=== PATIENT | male | born 1965 | race Caucasian/White ===

== ENCOUNTER 2024-03-12 08:51 | Outpatient (AMB) | payer OTHER, SELFPAY ==
--- NOTE | 2024-03-12 08:52 | A.OFFVIS_ITS ---
Vital Signs 03/12/24 08:53 Height 5 ft 11 in Weight 198 lb 6.656 oz BMI 27.7 BP 122/74 Blood Pressure Location Rt brachial Position Sitting Pulse 83 Pulse Oximetry (%) 97 Intake Visit Reasons: Joint Pain Intake Note: New patient presents today for consult. Family history of Rheumatoid arthritis. 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 The condition started approximately 8-10 years ago. Patient stated that he was diagnosed with Lyme these 2-3 times after a tick bite and symptoms resolved with doxycycline courses. Patient states that he has chronic pain in different joints including shoulders, elbows, intermittent pain in his hands, knees. Most recently has been having pain in his left triceps. He has difficultly raising his left arm above his head. He was evaluated by Orthopedics about a month ago and had x-rays done in an he was told it was normal. He was advised to do physical therapy. He was kayaking yesterday and his right shoulder is significantly painful. Two years ago he had abrupt onset of left call pain and swelling with no precipitating cause, this was treated with a boot. He gets pain in the middle of the night in his elbows. 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 He denies any skin rashes. Denies any weight loss. States that his twin brother was recently diagnosed with a form of inflammatory arthritis and he had right shoulder surgery, afterwards he was having pain and inflammation in his left shoulder and at that time he was referred to a public affairs specialist and started on prednisone followed by methotrexate with improvement. States that his mother had really bad rheumatoid arthritis. They denies any history suggestive of uveitis. He had a colonoscopy 2 years ago which was unremarkable. Has an esophageal stricture related to GERD that was treated with Prilosec. [facility] Medical History (Updated 03/12/24 @ 09:38 by Susu Torres MD) GERD (gastroesophageal reflux disease) Esophageal dysphagia Asthma Displacement of lumbar intervertebral disc without myelopathy Surgical History Status post right foot surgery Family History (Updated 03/12/24 @ 09:41 by Susu Torres MD) Mother Rheumatoid arthritis Heart disease Father Dementia Coronary arteriosclerosis COPD (chronic obstructive pulmonary disease) Malignant tumor of prostate Brother Seronegative arthritis Social History Alcohol intake: current Alcohol intake frequency: a few times a week Alcohol type: beer Patient Tobacco Use Status: Never used Tobacco Substance Use Type: Marijuana 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 Review of [employer] Const Reports fatigue, Denies fever(s), Reports weight gain and Denies weight loss Reports difficulty urinating Musc Reports arthralgias, Denies joint swelling and Reports stiffness Endo Reports fatigue Physical Exam Vital Signs: Last Vital Signs Pulse 83 03/12/24 08:53 BP 122/74 03/12/24 08:53 Pulse Ox 97 03/12/24 08:53 BMI result Body Mass Index 27.7 Const General: cooperative, healthy appearing and comfortable Nutritional Appearance: overweight Orientation/consciousness: patient oriented x3 Limitations: no limitations HEENT Head: Yes normocephalic and Yes atraumatic Mouth: moist mucous membranes Resp Effort & Inspection: normal respiratory effort and able to speak in complete sentences Auscultation: clear to auscultation bilaterally Cardio Rate: regular rate Skin General skin exam: no rashes or lesions noted Neuro General: patient oriented x3 Extrem Other: No obviously swollen joints Tenderness at the insertion site of left triceps Bilateral elbow pain with full extension Negative rotator cuff provocative maneuvers bilaterally Negative Speed's test bilaterally Negative Fabere test bilaterally No ankle swelling or tenderness bilaterally Normal nailfold capillaroscopy Results Reviewed Results Reviewed: Bilateral knee x-rays 2020? Impression no acute bone abnormality.? No significant degenerative change.? No significant change from 28/09 Labs 02/2023? LDL 112 Cholesterol 193? Triglycerides 186? Direct HDL 47 CMP unremarkable labs 2020 Immunoglobulin A 264 normal? TGA antibody IgA negative CRP undetectable ESR 2.0 CBC unremarkable DEE screen IFA negative RF negative CCP negative Assessment & Plan Assessment & Plan (1) Polyarthralgia: Code(s): M25.50 - Pain in unspecified joint Category: Medical Plan: This is a 58-year-old male who presents for evaluation of 8-10 year history of multiple joint pain. Joint pain is usually at the enthesis. Brother was recently diagnosed with a form of inflammatory arthritis that is treated with methotrexate. Mother had rheumatoid arthritis. His clinical picture is suspicious for a seronegative spondyloarthropathy. Will order comprehensive serology to screen for underlying autoimmune rheumatic disease. Patient will try to send me the report of recent x-rays done at Orthopedics. Start short prednisone taper for left triceps tendon pain Follow-up in 4-6 weeks Plan I spent 47 minutes reviewing patient's chart, evaluating patient, ordering diagnostic workup, counseling patient and documenting in the chart Orders: Orders C Reactive Protein Today M25.50 - Pain in unspecified joint Erythrocyte Sedimentation Rate Today M25.50 - Pain in unspecified joint Immunofixation Pnl, Serum Today M25.50 - Pain in unspecified joint Protein Electrophoresis, Serum Today M25.50 - Pain in unspecified joint Hepatitis A,B,C Profile Today Z11.59 - Encounter for screening for other viral diseases Angiotensin Converting Enzyme Today D86.9 - Sarcoidosis, unspecified Complete Blood Count Auto Diff Today M25.50 - Pain in unspecified joint Comprehensive Met. Panel Today M25.50 - Pain in unspecified joint T Spot TB Today Z11.7 - Encounter for testing for latent tuberculosis infection Rheumatoid Factor Today M25.50 - Pain in unspecified joint Cyclic Citrullinated Peptide Today M25.50 - Pain in unspecified joint HLA B27 Today M45.9 - Ankylosing spondylitis of unspecified sites in spine Medications: New prednisone Take 2 tabs daily for 1 week then 1 tab daily for 1 week then stop 21 tabs 0RF Coding Level of Care Code New Pt Level 4 (29358) Diagnoses Polyarthralgia M25.50
[2024-03-12 08:53] VITALS: BP 122/74; PULSE 83; O2SAT 97; BMI 27.7
== END 2024-03-12 09:32 | disposition home or self-care (01) ==
PROVIDERS: PCP Family Medicine; Visit Provider Student in an Organized Health Care Education/Training Program
DX: M25.50 Pain in unspecified joint (principal)
CPT/HCPCS: 99204

== ENCOUNTER → 2024-03-12 08:51 | Outpatient (BNVA) | payer OTHER, SELFPAY | PROVIDERS: PCP Family Medicine; Visit Provider Student in an Organized Health Care Education/Training Program ==

== ENCOUNTER 2024-03-12 09:36 | Outpatient (REF) | payer OTHER, SELFPAY ==
[2024-03-12 11:01] LABS: MANUAL DIFF FLAG NO
[2024-03-12 11:23] LABS: Rheumatoid Factor < 13.0 IU/mL (<15.0)
[2024-03-12 11:28] LABS: Alanine Aminotransferase 21 U/L (0-40); Albumin Level 4.2 g/dL (3.5-5.0); Alkaline Phosphatase 73 U/L (39-117); Anion Gap 13 (12-20); Aspartate Amino Transferase 16 U/L (5-37); Bilirubin Total 0.4 mg/dL (0.0-1.0); Blood Urea Nitrogen 18 mg/dL (9-16); C Reactive Protein 0.15 mg/dL (< or = 0.50); Calcium 9.5 mg/dL (8.4-10.2); Carbon Dioxide 26 mmol/L (22-29); Chloride 108 mmol/L (96-108); Estimated Glomerular Filt Rate > 60; Glucose Random 91 mg/dL (60-115); Potassium 4.1 mmol/L (3.3-5.1); Sodium 143 mmol/L (135-145); Total Protein 6.6 g/dL (6.5-8.0)
[2024-03-12 11:33] LABS: Basophils Absolute Auto 0.1 X10*3/uL (0.0-0.2); Basophils Percent Auto 1.1 % (0-2); Eosinophils Absolute Auto 0.3 X10*3/uL (0.0-0.4); Eosinophils Percent Auto 6.3 % (0-4); Hematocrit 44.2 % (42.0-52.0); Hemoglobin 15.4 g/dl (14.0-18.0); Imm Gran Abs Auto 0.03 X10*3/uL (0.00-0.03); Imm Gran Pct Auto 0.7 % (0.0-0.4); Lymphocytes Absolute Auto 1.2 X10*3/uL (1.2-4.9); Lymphocytes Percent Auto 26.1 % (20-40); Mean Corpuscular HGB Conc 34.8 g/dl (31.0-36.0); Mean Corpuscular Hemoglobin 31.4 pg (27.0-33.0); Mean Platelet Volume 10.1 fL (9.4-12.4); Monocytes Absolute Auto 0.4 X10*3/uL (0.1-1.2); Monocytes Percent Auto 9.1 % (2-11); Neutrophils Absolute Auto 2.6 x10*3/uL (2.0-8.3); Neutrophils Percent Auto 56.7 % (45-73); Platelet Count 203 X10*3/uL (160-400); Red Blood Count 4.91 X10*6/uL (4.60-5.80); Red Cell Distribution Width 12.9 % (11.0-16.0); White Blood Count 4.6 X10*3/uL (4.8-10.8)
[2024-03-12 11:42] LABS: HBS Num1 0.85 mIU/mL (0-7.99); HBc Num1 0.12 S/CO (0.00-0.79); HBsAGNum1 0.33 S/CO (0.00-0.99); Hepatitis A Antibody IgM 0.22 Index (0-0.79); Hepatitis B Core Antibody Nonreactive (Nonreactive); Hepatitis B Surface Antigen Negative (Negative); ~HepC Num1 0.18 S/CO (0.00-0.79); ~Hepatitis A Antibody IgM Nonreactive (Nonreactive); ~Hepatitis B Surface Antibody NONREACTIVE (Nonreactive); ~Hepatitis C Antibody Nonreactive (Nonreactive)
[2024-03-12 11:58] LABS: Erythrocyte Sedimentation Rate 2 MM/HR (0-15)
[2024-03-14 20:48] LABS: Cyclic Citrullinated Peptide <16 UNITS
[2024-03-15 14:49] LABS: TS Negative Control Passed; TS Panel A 4; TS Panel B 0; TS Positive Control Passed; TSpotTB Negative (Negative)
[2024-03-16 13:34] LABS: HLA B27 Negative (Negative)
[2024-03-20 06:24] LABS: Angiotensin Converting Enzyme 38 U/L (9-67)
[2024-03-20 22:29] LABS: Prot Elec - Albumin 4.5 g/dL (3.8-4.8); Prot Elec - Alpha1 0.2 g/dL (0.2-0.3); Prot Elec - Alpha2 0.6 g/dL (0.5-0.9); Prot Elec - Beta 1 0.5 g/dL (0.4-0.6); Prot Elec - Beta 2 0.3 g/dL (0.2-0.5); Prot Elec - Gamma 0.7 g/dL (0.8-1.7); Prot Elec - Total Protein 6.8 g/dL (6.1-8.1)
[2024-03-21 01:34] LABS: IgA 233 mg/dL (47-310); IgG 686 mg/dL (600-1640); IgM 86 mg/dL (50-300)
== END 2024-03-12 09:37 | disposition home or self-care (01) ==
LOC: HO.10HDL 09:36
PROVIDERS: Visit Provider Student in an Organized Health Care Education/Training Program
DX: Z11.59 Encounter for screening for other viral diseases (principal); Z11.7 Encounter for testing for latent tuberculosis infection; M25.50 Pain in unspecified joint; D86.9 Sarcoidosis, unspecified; M45.9 Ankylosing spondylitis of unspecified sites in spine; Z72.89 Other problems related to lifestyle
CPT/HCPCS: 36415; 80053; 82164; 82784; 84165; 85025; 85652; 86140; 86200; 86334; 86431; 86481; 86704; 86706; 86709; 86803; 86812; 87340

== ENCOUNTER 2024-04-23 08:27 | Outpatient (AMB) | payer OTHER, SELFPAY ==
--- NOTE | 2024-04-23 08:27 | MHC.OFFVIS ---
Vital Signs 04/23/24 08:32 Height 5 ft 11 in Weight 196 lb 13.965 oz BMI 27.5 BP 118/60 Blood Pressure Location Lt brachial Position Sitting Pulse 73 Pulse Source Pulse Oximeter Pulse Oximetry (%) 98 Oxygen Delivery Method Room Air Intake Visit Reasons: Seroneg Arthritis/lm Intake Note: Patient presents for Seroneg Arthritis. Skin rash on back. Allergies Penicillins Adverse Reaction (Verified 04/23/24 08:31) Rash Medication List - Last Reconciled 04/23/24 by Susu Torres MD albuterol sulfate 90 mcg/actuation inhalation folic acid 1 mg PO DAILY methotrexate sodium 15 mg (6 x 2.5 mg) PO QWEEK tadalafil 5 mg PO DAILY HPI Comments Details: Patient returns for follow-up after completion of his diagnostic workup. He took prednisone as prescribed for 2 weeks with some improvement. No longer on it. Continues to have multiple and pain including the elbows, shoulders, knees. Initial history: This is a 58-year-old male who presents for evaluation of multiple joint pain. The condition started approximately 8-10 years ago. Patient stated that he was diagnosed with Lyme these 2-3 times after a tick bite and symptoms resolved with doxycycline courses. Patient states that he has chronic pain in different joints including shoulders, elbows, intermittent pain in his hands, knees. Most recently has been having pain in his left triceps. He has difficultly raising his left arm above his head. He was evaluated by Orthopedics about a month ago and had x-rays done in an he was told it was normal. He was advised to do physical therapy. He was kayaking yesterday and his right shoulder is significantly painful. Two years ago he had abrupt onset of left call pain and swelling with no precipitating cause, this was treated with a boot. He gets pain in the middle of the night in his elbows. 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 He denies any skin rashes. Denies any weight loss. States that his twin brother was recently diagnosed with a form of inflammatory arthritis and he had right shoulder surgery, afterwards he was having pain and inflammation in his left shoulder and at that time he was referred to a sales and events coordinator and started on prednisone followed by methotrexate with improvement. States that his mother had really bad rheumatoid arthritis. They denies any history suggestive of uveitis. He had a colonoscopy 2 years ago which was unremarkable. Has an esophageal stricture related to GERD that was treated with Prilosec. [facility] Medical History GERD (gastroesophageal reflux disease) Esophageal dysphagia Asthma Displacement of lumbar intervertebral disc without myelopathy Surgical History Status post right foot surgery Family History Mother Rheumatoid arthritis Heart disease Father Dementia Coronary arteriosclerosis COPD (chronic obstructive pulmonary disease) Malignant tumor of prostate Brother Seronegative arthritis Social History Alcohol intake: current Alcohol intake frequency: a few times a week Alcohol type: beer Patient Tobacco Use Status: Never used Tobacco Substance Use Type: Marijuana 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 Review of Systems [facility] Reports arthralgias, Denies joint swelling and Reports stiffness Physical Exam Vital Signs: Last Vital Signs Pulse 73 04/23/24 08:32 BP 118/60 04/23/24 08:32 Pulse Ox 98 04/23/24 08:32 Oxygen Delivery Method Room Air 04/23/24 08:32 BMI result Body Mass Index 27.5 Const General: cooperative, healthy appearing and comfortable Nutritional Appearance: overweight Orientation/consciousness: patient oriented x3 Limitations: no limitations HEENT Head: Yes normocephalic and Yes atraumatic Mouth: moist mucous membranes Resp Effort & Inspection: normal respiratory effort and able to speak in complete sentences Cardio Rate: regular rate Skin General skin exam: no rashes or lesions noted Neuro General: patient oriented x3 Extrem Other: No obviously swollen joints Tenderness at the insertion site of left triceps Bilateral elbow pain with full extension Negative rotator cuff provocative maneuvers bilaterally Negative Speed's test bilaterally Negative Fabere test bilaterally No ankle swelling or tenderness bilaterally Normal nailfold capillaroscopy Results Reviewed Results Reviewed: Bilateral knee x-rays 2020? Impression no acute bone abnormality.? No significant degenerative change.? No significant change from 28/09 Labs 02/2023? LDL 112 Cholesterol 193? Triglycerides 186? Direct HDL 47 CMP unremarkable labs 2020 Immunoglobulin A 264 normal? TGA antibody IgA negative CRP undetectable ESR 2.0 CBC unremarkable DEE screen IFA negative RF negative CCP negative Assessment & Plan Assessment & Plan (1) Polyarthralgia: Code(s): M25.50 - Pain in unspecified joint Category: Medical Plan: This is a 58-year-old male who presents for evaluation of 8-10 year history of multiple joint pain. Joint pain is usually at the enthesis. Brother was recently diagnosed with a form of inflammatory arthritis that is treated with methotrexate. Mother had rheumatoid arthritis. Comprehensive serology is negative with normal inflammatory markers. His clinical picture is suspicious for a seronegative spondyloarthropathy. Need to start DMARDs. Discussed risks and benefits of methotrexate. Patient agreed to proceed. 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
[2024-04-23 08:32] VITALS: BP 118/60; PULSE 73; O2SAT 98; BMI 27.5
== END 2024-04-23 08:59 | disposition home or self-care (01) ==
LOC: HO.RHE 08:27
PROVIDERS: PCP Family Medicine; Visit Provider Student in an Organized Health Care Education/Training Program
DX: M25.50 Pain in unspecified joint (principal); Z79.631 Long term (current) use of antimetabolite agent
CPT/HCPCS: 99214

== ENCOUNTER → 2024-04-23 08:27 | Outpatient (BNVA) | payer OTHER, SELFPAY | PROVIDERS: PCP Family Medicine; Visit Provider Student in an Organized Health Care Education/Training Program ==

== ENCOUNTER 2024-07-02 12:38 | Outpatient (REF) | payer OTHER, SELFPAY ==
[2024-07-02 13:14] LABS: MANUAL DIFF FLAG NO
[2024-07-02 13:17] LABS: Basophils Absolute Auto 0.1 X10*3/uL (0.0-0.2); Basophils Percent Auto 1.2 % (0-2); Eosinophils Absolute Auto 0.2 X10*3/uL (0.0-0.4); Hematocrit 43.4 % (42.0-52.0); Hemoglobin 15.3 g/dl (14.0-18.0); Imm Gran Abs Auto 0.02 X10*3/uL (0.00-0.03); Imm Gran Pct Auto 0.4 % (0.0-0.4); Lymphocytes Absolute Auto 1.3 X10*3/uL (1.2-4.9); Lymphocytes Percent Auto 24.7 % (20-40); Mean Corpuscular HGB Conc 35.3 g/dl (31.0-36.0); Mean Corpuscular Hemoglobin 31.9 pg (27.0-33.0); Mean Corpuscular Volume 90.4 fL (80.0-98.0); Mean Platelet Volume 9.8 fL (9.4-12.4); Monocytes Absolute Auto 0.8 X10*3/uL (0.1-1.2); Monocytes Percent Auto 15.4 % (2-11); Neutrophils Absolute Auto 2.8 x10*3/uL (2.0-8.3); Neutrophils Percent Auto 55.3 % (45-73); Platelet Count 191 X10*3/uL (160-400); Red Cell Distribution Width 13.4 % (11.0-16.0); White Blood Count 5.1 X10*3/uL (4.8-10.8)
[2024-07-02 13:33] LABS: Alanine Aminotransferase 26 U/L (0-40); Albumin Level 4.4 g/dL (3.5-5.0); Alkaline Phosphatase 89 U/L (39-117); Anion Gap 9 (12-20); Aspartate Amino Transferase 19 U/L (5-37); Bilirubin Total 0.5 mg/dL (0.0-1.0); Blood Urea Nitrogen 12 mg/dL (9-16); C Reactive Protein 1.28 mg/dL (< or = 0.50); Calcium 9.5 mg/dL (8.4-10.2); Carbon Dioxide 30 mmol/L (22-29); Chloride 106 mmol/L (96-108); Estimated Glomerular Filt Rate > 60; Glucose Random 102 mg/dL (60-115); Potassium 3.9 mmol/L (3.3-5.1); Sodium 141 mmol/L (135-145); Total Protein 6.9 g/dL (6.5-8.0)
[2024-07-02 13:58] LABS: Erythrocyte Sedimentation Rate 2 MM/HR (0-15)
== END 2024-07-02 12:39 | disposition home or self-care (01) ==
LOC: HO.10HDL 12:38
PROVIDERS: Visit Provider Student in an Organized Health Care Education/Training Program
DX: Z79.899 Other long term (current) drug therapy (principal)
CPT/HCPCS: 36415; 80053; 85025; 85652; 86140

== ENCOUNTER 2024-07-09 08:19 | Outpatient (AMB) | payer OTHER, SELFPAY ==
--- NOTE | 2024-07-09 08:22 | MHC.OFFVIS ---
Vital Signs 07/09/24 08:26 Height 5 ft 11 in Weight 193 lb 9.054 oz BMI 27.0 BP 112/60 Blood Pressure Location Lt brachial Position Sitting Pulse 63 Pulse Source Pulse Oximeter Pulse Oximetry (%) 95 Intake Visit Reasons: Seroneg RA Intake Note: Patient presents for Seroneg RA. Allergies Penicillins Adverse Reaction (Verified 07/09/24 08:25) Rash Medication List - Last Reconciled 07/09/24 by Susu Torres MD albuterol sulfate 90 mcg/actuation inhalation folic acid 1 mg PO DAILY methotrexate sodium 15 mg (6 x 2.5 mg) PO QWEEK tadalafil 5 mg PO DAILY HPI Comments Details: 58-year-old male with newly diagnosed seronegative arthritis returns for follow-up. He took methotrexate as prescribed 15 mg once weekly for about 8 weeks then ran out 2-3 weeks ago. He stated about 6 weeks in he had some improvement of his generalized body aches. About 20% improvement. He continues to have pains in his shoulders, elbows, stiffness in lower back and knees when standing up after sitting for some time. He had a mild upper respiratory tract infection about a week and a half ago, no fever, just nasal congestion Initial history: This is a 58-year-old male who presents for evaluation of multiple joint pain. The condition started approximately 8-10 years ago. Patient stated that he was diagnosed with Lyme these 2-3 times after a tick bite and symptoms resolved with doxycycline courses. Patient states that he has chronic pain in different joints including shoulders, elbows, intermittent pain in his hands, knees. Most recently has been having pain in his left triceps. He has difficultly raising his left arm above his head. He was evaluated by Orthopedics about a month ago and had x-rays done in an he was told it was normal. He was advised to do physical therapy. He was kayaking yesterday and his right shoulder is significantly painful. Two years ago he had abrupt onset of left call pain and swelling with no precipitating cause, this was treated with a boot. He gets pain in the middle of the night in his elbows. 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 He denies any skin rashes. Denies any weight loss. States that his twin brother was recently diagnosed with a form of inflammatory arthritis and he had right shoulder surgery, afterwards he was having pain and inflammation in his left shoulder and at that time he was referred to a floor director and started on prednisone followed by methotrexate with improvement. States that his mother had really bad rheumatoid arthritis. They denies any history suggestive of uveitis. He had a colonoscopy 2 years ago which was unremarkable. Has an esophageal stricture related to GERD that was treated with Prilosec. [facility] Medical History (Updated 07/09/24 @ 08:49 by Susu Torres MD) GERD (gastroesophageal reflux disease) Esophageal dysphagia Asthma Displacement of lumbar intervertebral disc without myelopathy Surgical History Status post right foot surgery Family History Mother Rheumatoid arthritis Heart disease Father Dementia Coronary arteriosclerosis COPD (chronic obstructive pulmonary disease) Malignant tumor of prostate Brother Seronegative arthritis Social History Alcohol intake: current Alcohol intake frequency: a few times a week Alcohol type: beer Patient Tobacco Use Status: Never used Tobacco Substance Use Type: Marijuana 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 Review of Systems [facility] [place] Reports arthralgias, Denies joint swelling and Reports stiffness Physical Exam Vital Signs: Last Vital Signs Pulse 63 07/09/24 08:26 BP 112/60 07/09/24 08:26 Pulse Ox 95 07/09/24 08:26 BMI result Body Mass Index 27.0 Const General: cooperative, healthy appearing and comfortable Nutritional Appearance: overweight Orientation/consciousness: patient oriented x3 Limitations: no limitations HEENT Head: Yes normocephalic and Yes atraumatic Mouth: moist mucous membranes Resp Effort & Inspection: normal respiratory effort and able to speak in complete sentences Cardio Rate: regular rate Skin General skin exam: no rashes or lesions noted Neuro General: patient oriented x3 Extrem Other: No obviously swollen joints Tenderness at the insertion site of left triceps Bilateral elbow pain with full extension Positive empty can test bilaterally Negative Speed's test bilaterally Negative Fabere test bilaterally No ankle swelling or tenderness bilaterally Normal nailfold capillaroscopy Results Reviewed Results Reviewed: Bilateral knee x-rays 2020? Impression no acute bone abnormality.? No significant degenerative change.? No significant change from 28/09 Labs 02/2023? LDL 112 Cholesterol 193? Triglycerides 186? Direct HDL 47 CMP unremarkable labs 2020 Immunoglobulin A 264 normal? TGA antibody IgA negative CRP undetectable ESR 2.0 CBC unremarkable DEE screen IFA negative RF negative CCP negative Assessment & Plan Assessment & Plan (1) Seronegative arthritis: Code(s): M13.80 - Other specified arthritis, unspecified site Category: Medical Plan: This is a 58-year-old male who presents for evaluation of 8-10 year history of multiple joint pain. Joint pain is usually at the enthesis. Brother was recently diagnosed with a form of inflammatory arthritis that is treated with methotrexate. Mother had rheumatoid arthritis. Comprehensive serology is negative. Recent CRP is mildly elevated, may be related to mild upper respiratory tract infection Patient took methotrexate 15 mg once weekly for about 8 weeks and 6 weeks and he felt some improvement in his generalized body aches. Methotrexate was well-tolerated. I think patient needs a longer treatment trial. 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 Panel 3 Months M13.80 - Other specified arthritis, unspecified site, Z79.631 - middle or intermediate school principal (current) use of antimetabolite agent Erythrocyte Sedimentation Rate 3 Months M13.80 - Other specified arthritis, unspecified site, Z79.631 - middle or intermediate school principal (current) use of antimetabolite agent Complete Blood Count Auto Diff 3 Months M13.80 - Other specified arthritis, unspecified site, Z79.631 - [facility] (current) use of antimetabolite agent C Reactive Protein 3 Months M13.80 - Other specified arthritis, unspecified site, Z79.631 - [facility] (current) use of antimetabolite agent Medications: Changed From methotrexate sodium 15 mg (6 x 2.5 mg) PO QWEEK 48 tabs 0RF To methotrexate sodium 4 tabs Tuesday night and 4 tabs Tuesday night 20 mg (8 x 2.5 mg) PO QWEEK 96 tabs 0RF Refilled folic acid 1 mg PO DAILY 90 tabs 1RF Coding Level of Care Code Est Pt Level 4 (89966) Diagnoses Seronegative arthritis M13.80 [facility] methotrexate user Z79.631
[2024-07-09 08:26] VITALS: BP 112/60; PULSE 63; O2SAT 95; BMI 27.0
== END 2024-07-09 08:44 | disposition home or self-care (01) ==
PROVIDERS: PCP Family Medicine; Visit Provider Student in an Organized Health Care Education/Training Program
DX: M13.80 Other specified arthritis, unspecified site (principal); Z79.631 Long term (current) use of antimetabolite agent
CPT/HCPCS: 99214

== ENCOUNTER → 2024-07-09 08:19 | Outpatient (BNVA) | payer OTHER, SELFPAY | PROVIDERS: PCP Family Medicine; Visit Provider Student in an Organized Health Care Education/Training Program ==